=== PATIENT | female | born 1940 | race Two or more races ===

== ENCOUNTER 2025-04-06 08:59 | Inpatient (IN) | payer OTHER ==
[~2025-04-06] VITALS: Ht 167.6 cm; Wt 61.2 kg
[2025-04-06] MEDS ORDERED: TIROSINT75 MCG PO (09:24)
[2025-04-06] MEDS ORDERED: LYRICA100 MG PO (09:24)
[2025-04-06] MEDS ORDERED: COZAAR25 MG PO (09:24)
[2025-04-06] MEDS ORDERED: ROSUVASTATIN CA20 MG PO (09:25)
[2025-04-06] MEDS ORDERED: XARELTO10 MG PO (09:25)
[2025-04-06] MEDS ORDERED: PLAVIX75 MG PO (09:25)
[2025-04-06] MEDS ORDERED: FARXIGA10 MG PO (09:25)
[2025-04-06] MEDS ORDERED: GLUCOTROL (09:26)
[2025-04-06] MEDS ORDERED: LANTUS SOL100 UNIT/1 SQ (09:27)
--- NOTE | 2025-04-06 09:27 | NUR ---
PACIENTE ALERTA Y ORIENTADA X3. REFIRE VENIR POR INFECCION DE ORINA. REFIERE QUE SE GONZALES ESTADO TOMANDO ANTIBIOTICOS AMBER NO LE OLIVO FUNCIONADO. SE ESTIMAN VITALES Y SE UBICA.
[2025-04-06 10:35] LABS: BASO % 0.4 % (0.1-1.2); EOS # 0.16 (0.04-0.54); EOS % 1.3 % (0.7-7.0); LYMPH # 2.60 (1.18-3.74); LYMPH % 21.5 % (19.3-53.1); MEAN PLATELET VOLUME 10.20 fl (9.4-12.4); MONO # 0.69 (0.24-0.82); MONO % 5.7 % (4.7-12.5); NEUT # 8.53 (1.56-6.13); NEUT % 70.8 % (34.0-71.1); RED CELL DISTRIBUTION WIDTH 13.6 % (11.6-14.4)
[2025-04-06 10:41] LABS: URINE APPEARANCE Cloudy; URINE BACTERIA 1481.9 uL (0.0-1933); URINE BILIRRUBIN Negative (NEGATIVE); URINE BLOOD Large; URINE COLOR Yellow; URINE EPITHELIAL CELLS 19.0 uL (0.0-38.8); URINE KETONE Negative (NEGATIVE); URINE LEUKOCYTE Moderate; URINE NITRATE Negative; URINE RBC 103.9 uL (0.0-20.8); URINE UROBILINOGEN 0.2 E.U./dl; URINE WBC 2968.6 uL (0.0-23.2)
--- NOTE | 2025-04-06 10:46 | NUR ---
PTE. EVALUADO POR DR. HIGHTOWER, PRESENTANDO MOLESTIA EN ORINA SE REALIZA VASU DE MUESTRAS DE ABBE BAJO MEDIDAS ASEPTICAS Y SE CANALIZA EN BRAZO RIVKA PATENTE Y JOAN DE EDEMA. CLIENTE Y FAMILIAR SON ORIENTADOS SOBRE PROCEDIMIENTOS REALIZADOS Y PROCESO DE RE-EVALUACION MEDICA. PTE. ALERTA Y ORIENTADO EN ESPERA DE RESULTADOS.
[2025-04-06 10:54] LABS: URINE CAST 0.87 uL (0.0-1.40); URINE GLUCOSE >=1000 MG/DL (NEGATIVE); URINE PROTEIN 100 (NEGATIVE)
[2025-04-06 11:00] LABS: ALT/SGPT 41.0 U/L (12-78); AST/SGOT 21.0 U/L (15-37); BILIRUBIN TOTAL 0.36 mg/dL (0.3-1.2); BUN CREA RATIO 28.0 (7.0-25.0); CREATININE SERUM 2.27 mg/dL (0.55-1.02); GFR 20.41; GLOBULINA 5.1 G/DL (2.4-3.5); OSMOLALITY SERUM 308.0 MOSM/KG (275-295)
[2025-04-06 11:07] LABS: GLUCOSE FASTING 289.0 mg/dL (65-100)
[2025-04-06] MEDS ORDERED: CEFTRIAXONE SODIUM 2,000 MG VIAL IV STA (11:26)
[2025-04-06] MEDS ORDERED: CEFTRIAXONE SODIUM 2,000 MG VIAL ONE (11:30)
[2025-04-06] MEDS ORDERED: ATORVASTATIN CALCIUM 20 MG TABLET PO SCH (20:28)
[2025-04-06] MEDS ORDERED: CLOPIDOGREL BISULFATE 75 MG TABLET PO SCH (20:28)
[2025-04-06] MEDS ORDERED: DEXTROSE 50 % IN WATER 0.5 G/ML DISP.SYRIN IV PRN (20:30)
[2025-04-06] MEDS ORDERED: INSULIN LISPRO 1,000 UNIT/10 ML UNITS SUBCUTANEO PRN (20:30)
[2025-04-06] MEDS ORDERED: PANTOPRAZOLE SODIUM 40 MG in 0.9 % SODIUM CHLORIDE 8 ML IV PUSH SCH (20:33)
[2025-04-06] MEDS ORDERED: RIVAROXABAN 10 MG TAB PO SCH (20:39)
[2025-04-06] MEDS ORDERED: LOSARTAN POTASSIUM 100 MG TABLET PO SCH (20:39)
[2025-04-06] MEDS ORDERED: hydrALAZINE HCL 20 MG VIAL IV PRN (20:45)
[2025-04-06] MEDS ORDERED: VANCOMYCIN HCL 1,000 MG VIAL IV SCH (20:45)
[2025-04-06] MEDS ORDERED: ACETAMINOPHEN 325 MG TABLET PO PRN (20:45)
[2025-04-06] MEDS ORDERED: 0.9 % SODIUM CHLORIDE 1,000 ML IV SCH (20:45)
[2025-04-07 03:12] VITALS: BP 114/69; O2SAT 97
[2025-04-07] MEDS ORDERED: LEVOTHYROXINE SODIUM 75 MCG TABLET PO SCH (06:00)
[2025-04-07 08:58] VITALS: BP 130/69; O2SAT 100
[2025-04-07] MEDS ORDERED: VANCOMYCIN HCL 1,000 MG VIAL IV SCH (12:00)
[2025-04-07 15:30] VITALS: BP 103/59; O2SAT 99
[2025-04-07] MEDS ORDERED: PATIENTS OWN MEDICATION (MEDICAMENTO EN PISO) PO SCH (17:00)
[2025-04-07] MEDS ORDERED: CEFTRIAXONE SODIUM 1,000 MG in 0.9 % SODIUM CHLORIDE 100 ML IV SCH (20:13)
[2025-04-08 01:12] VITALS: BP 106/66; O2SAT 97
[2025-04-08 09:32] VITALS: BP 162/76; O2SAT 99
[2025-04-08 16:50] VITALS: BP 143/63; O2SAT 99
[2025-04-08] MEDS ORDERED: CEFTRIAXONE SODIUM 1,000 MG in 0.9 % SODIUM CHLORIDE 100 ML IV SCH (17:00)
[2025-04-08] MEDS ORDERED: LACTOBACILLUS ACIDOPHILUS 1 CAP CAP PO SCH (17:00)
[2025-04-09 02:08] VITALS: BP 117/69; O2SAT 98
[2025-04-09 06:19] LABS: BASO % 0.6 % (0.1-1.2); EOS # 0.28 (0.04-0.54); EOS % 2.7 % (0.7-7.0); LYMPH # 3.11 (1.18-3.74); LYMPH % 29.6 % (19.3-53.1); MEAN PLATELET VOLUME 10.40 fl (9.4-12.4); MONO # 0.89 (0.24-0.82); MONO % 8.5 % (4.7-12.5); NEUT # 6.12 (1.56-6.13); NEUT % 58.3 % (34.0-71.1); RED CELL DISTRIBUTION WIDTH 13.5 % (11.6-14.4)
[2025-04-09 06:52] LABS: BUN CREA RATIO 25.0 (7.0-25.0); CREATININE SERUM 1.5 mg/dL (0.55-1.02); GFR 32.92; GLUCOSE FASTING 149.0 mg/dL (65-100); OSMOLALITY SERUM 296.0 MOSM/KG (275-295)
[2025-04-09 08:27] VITALS: BP 157/55; O2SAT 100
[2025-04-09 16:00] VITALS: BP 148/83; O2SAT 97
[2025-04-10 00:49] VITALS: BP 120/76; O2SAT 98
[2025-04-10 06:17] LABS: BASO % 0.8 % (0.1-1.2); EOS # 0.27 (0.04-0.54); EOS % 2.6 % (0.7-7.0); LYMPH # 2.81 (1.18-3.74); LYMPH % 27.5 % (19.3-53.1); MEAN PLATELET VOLUME 10.60 fl (9.4-12.4); MONO # 0.88 (0.24-0.82); MONO % 8.6 % (4.7-12.5); NEUT # 6.15 (1.56-6.13); NEUT % 60.2 % (34.0-71.1); RED CELL DISTRIBUTION WIDTH 13.4 % (11.6-14.4)
[2025-04-10 06:34] LABS: ALT/SGPT 23.0 U/L (12-78); AST/SGOT 11.0 U/L (15-37); BILIRUBIN TOTAL 0.3 mg/dL (0.3-1.2); BUN CREA RATIO 22.0 (7.0-25.0); CREATININE SERUM 1.44 mg/dL (0.55-1.02); GFR 34.51; GLOBULINA 3.9 G/DL (2.4-3.5); GLUCOSE FASTING 151.0 mg/dL (65-100); OSMOLALITY SERUM 295.0 MOSM/KG (275-295)
[2025-04-10] MEDS ORDERED: PANTOPRAZOLE SODIUM 40 MG TABLET.DR PO SCH (09:00)
[2025-04-10 16:32] VITALS: BP 138/79
[2025-04-10] MEDS ORDERED: SOD FERRIC GLUC COMPLX/SUCROSE 125 MG in 0.9 % SODIUM CHLORIDE 100 ML IV SCH (20:39)
[2025-04-11 03:17] VITALS: BP 161/94; O2SAT 98
[2025-04-11 03:40] VITALS: BP 116/70
[2025-04-11] MEDS ORDERED: PROMETHAZINE HCL 25 MG/ML AMPUL IV PRN (03:45)
[2025-04-11 06:49] LABS: BASO % 0.3 % (0.1-1.2); EOS # 0.11 (0.04-0.54); EOS % 0.7 % (0.7-7.0); LYMPH # 2.24 (1.18-3.74); LYMPH % 14.7 % (19.3-53.1); MEAN PLATELET VOLUME 10.50 fl (9.4-12.4); MONO # 0.72 (0.24-0.82); MONO % 4.7 % (4.7-12.5); NEUT # 12.11 (1.56-6.13); NEUT % 79.2 % (34.0-71.1); RED CELL DISTRIBUTION WIDTH 13.5 % (11.6-14.4)
[2025-04-11 07:24] LABS: BUN CREA RATIO 20.0 (7.0-25.0); CREATININE SERUM 1.32 mg/dL (0.55-1.02); GFR 38.16; OSMOLALITY SERUM 295.0 MOSM/KG (275-295)
[2025-04-11 07:29] LABS: GLUCOSE FASTING 234.0 mg/dL (65-100)
[2025-04-11 08:54] VITALS: BP 144/85; O2SAT 98
[2025-04-11] MEDS ORDERED: PIPERACILLIN/TAZOBACTAM SODIUM 2.25 GM VIAL IV STA (09:48)
[2025-04-11 13:14] LABS: URINE APPEARANCE Cloudy; URINE BILIRRUBIN Negative (NEGATIVE); URINE BLOOD Large; URINE COLOR Yellow; URINE LEUKOCYTE Moderate; URINE NITRATE Negative; URINE PROTEIN 30 (NEGATIVE); URINE UROBILINOGEN 0.2 E.U./dl
[2025-04-11 13:18] LABS: URINE BACTERIA 159.6 uL (0.0-1933); URINE EPITHELIAL CELLS 23.5 uL (0.0-38.8); URINE RBC 505.5 uL (0.0-20.8); URINE WBC 2160.5 uL (0.0-23.2)
[2025-04-11 13:23] LABS: URINE CAST 0.29 uL (0.0-1.40); URINE GLUCOSE >=1000 MG/DL (NEGATIVE); URINE KETONE 40 (NEGATIVE)
[2025-04-11 15:35] LABS: BASO % 0.1 % (0.1-1.2); EOS # 0.00 (0.04-0.54); EOS % 0.0 % (0.7-7.0); LYMPH # 0.76 (1.18-3.74); LYMPH % 5.0 % (19.3-53.1); MEAN PLATELET VOLUME 10.20 fl (9.4-12.4); MONO # 0.32 (0.24-0.82); MONO % 2.1 % (4.7-12.5); NEUT # 14.13 (1.56-6.13); NEUT % 92.4 % (34.0-71.1); RED CELL DISTRIBUTION WIDTH 13.8 % (11.6-14.4)
[2025-04-11] MEDS ORDERED: SOD FERRIC GLUC COMPLX/SUCROSE 62.5 MG in 0.9 % SODIUM CHLORIDE 50 ML IV SCH (17:00)
[2025-04-11 17:10] VITALS: BP 126/79; O2SAT 96
[2025-04-11] MEDS ORDERED: PIPERACILLIN/TAZOBACTAM SODIUM 2.25 GM VIAL IV SCH (18:00)
[2025-04-11] MEDS ORDERED: POTASSIUM PHOS,M-BASIC-D-BASIC 9 MM in 0.9 % SODIUM CHLORIDE 250 ML IV ONE (20:00)
[2025-04-11] MEDS ORDERED: INSULIN GLARGINE,HUM.REC.ANLOG 1,000 UNITS/10 ML UNITS SUBCUTANEO SCH (20:30)
[2025-04-11] MEDS ORDERED: TEMAZEPAM 15 MG CAPSULE PO SCH (21:00)
[2025-04-12 03:11] VITALS: BP 124/86; O2SAT 97
[2025-04-12 06:18] LABS: BASO % 0.1 % (0.1-1.2); EOS # 0.00 (0.04-0.54); EOS % 0.0 % (0.7-7.0); LYMPH # 1.61 (1.18-3.74); LYMPH % 12.0 % (19.3-53.1); MEAN PLATELET VOLUME 10.60 fl (9.4-12.4); MONO # 1.35 (0.24-0.82); MONO % 10.0 % (4.7-12.5); NEUT # 10.45 (1.56-6.13); NEUT % 77.5 % (34.0-71.1); RED CELL DISTRIBUTION WIDTH 13.6 % (11.6-14.4)
[2025-04-12 07:13] LABS: ALT/SGPT 28.0 U/L (12-78); AST/SGOT 107.0 U/L (15-37); BILIRUBIN TOTAL 0.5 mg/dL (0.3-1.2); BUN CREA RATIO 20.0 (7.0-25.0); CREATININE SERUM 1.58 mg/dL (0.55-1.02); GFR 31.01; GLOBULINA 3.9 G/DL (2.4-3.5)
[2025-04-12 07:20] LABS: GLUCOSE FASTING 203.0 mg/dL (65-100); OSMOLALITY SERUM 301.0 MOSM/KG (275-295)
[2025-04-12] MEDS ORDERED: INSULIN LISPRO 1,000 UNIT/10 ML UNITS SUBCUTANEO STA (08:06)
[2025-04-12 09:11] VITALS: BP 94/58; O2SAT 98
[2025-04-12] MEDS ORDERED: INSULIN LISPRO 1,000 UNIT/10 ML UNITS SUBCUTANEO SCH (12:00)
[2025-04-12 12:59] VITALS: BP 93/60; O2SAT 99
[2025-04-12 18:05] VITALS: BP 93/60; O2SAT 98
[2025-04-12] MEDS ORDERED: INSULIN GLARGINE,HUM.REC.ANLOG 1,000 UNITS/10 ML UNITS SUBCUTANEO SCH (21:00)
[2025-04-13 03:07] VITALS: BP 97/62
[2025-04-13 05:53] LABS: BASO % 0.4 % (0.1-1.2); EOS # 0.27 (0.04-0.54); EOS % 2.7 % (0.7-7.0); LYMPH # 2.59 (1.18-3.74); LYMPH % 26.2 % (19.3-53.1); MEAN PLATELET VOLUME 10.60 fl (9.4-12.4); MONO # 0.85 (0.24-0.82); MONO % 8.6 % (4.7-12.5); NEUT # 6.10 (1.56-6.13); NEUT % 61.9 % (34.0-71.1); RED CELL DISTRIBUTION WIDTH 14.3 % (11.6-14.4)
[2025-04-13 07:20] LABS: ALT/SGPT 29.0 U/L (12-78); AST/SGOT 80.0 U/L (15-37); BILIRUBIN TOTAL 0.49 mg/dL (0.3-1.2); BUN CREA RATIO 20.0 (7.0-25.0); CREATININE SERUM 1.71 mg/dL (0.55-1.02); GFR 28.3; GLOBULINA 3.5 G/DL (2.4-3.5); GLUCOSE FASTING 191.0 mg/dL (65-100); OSMOLALITY SERUM 301.0 MOSM/KG (275-295)
[2025-04-13] MEDS ORDERED: INSULIN LISPRO 1,000 UNIT/10 ML UNITS SUBCUTANEO SCH ×2 (08:00)
[2025-04-13 09:01] VITALS: BP 109/70; O2SAT 97
[2025-04-13] MEDS ORDERED: PIPERACILLIN/TAZOBACTAM SODIUM 2.25 GM VIAL IV SCH (17:00)
[2025-04-13 19:28] VITALS: BP 127/61; O2SAT 100
[2025-04-13] MEDS ORDERED: INSULIN GLARGINE,HUM.REC.ANLOG 1,000 UNITS/10 ML UNITS SUBCUTANEO SCH (21:00)
[2025-04-14 03:40] VITALS: BP 106/65; O2SAT 96
[2025-04-14 08:57] LABS: ob POSITIVE (NEGATIVE)
[2025-04-14 09:27] VITALS: BP 120/73
[2025-04-14 16:36] VITALS: BP 112/70; O2SAT 99
[2025-04-15 05:38] VITALS: BP 130/84; O2SAT 97
[2025-04-15 10:19] VITALS: BP 128/83; O2SAT 99
[2025-04-15 11:19] LABS: BASO % 0.6 % (0.1-1.2); EOS # 0.23 (0.04-0.54); EOS % 2.8 % (0.7-7.0); LYMPH # 1.73 (1.18-3.74); LYMPH % 20.8 % (19.3-53.1); MEAN PLATELET VOLUME 10.20 fl (9.4-12.4); MONO # 0.63 (0.24-0.82); MONO % 7.6 % (4.7-12.5); NEUT # 5.63 (1.56-6.13); NEUT % 67.8 % (34.0-71.1); RED CELL DISTRIBUTION WIDTH 15.8 % (11.6-14.4)
== END 2025-04-15 16:17 | disposition home or self-care (01) | DRG 690 ==
LOC: ER 08:59 → MEDI 20:28
PROVIDERS: General Practice; Internal Medicine; Internal Medicine Infectious Disease; Internal Medicine Nephrology; ADMIT Internal Medicine; ATTEND Internal Medicine
PROC: B020ZZZ Computerized Tomography (CT Scan) of Brain (ICD-10-PCS; principal; 2025-04-07)
PROC: BW40ZZZ Ultrasonography of Abdomen (ICD-10-PCS; 2025-04-11)
PROC: BW4GZZZ Ultrasonography of Pelvic Region (ICD-10-PCS; 2025-04-11)
PROC: BW28ZZZ Computerized Tomography (CT Scan) of Head (ICD-10-PCS; 2025-04-12)
PROC: B24BYZZ Ultrasonography of Heart with Aorta using Other Contrast (ICD-10-PCS; 2025-04-12)
DX: N39.0 Urinary tract infection, site not specified (principal); N17.9 Acute kidney failure, unspecified; I10 Essential (primary) hypertension; E11.9 Type 2 diabetes mellitus without complications; Z79.4 Long term (current) use of insulin; E03.9 Hypothyroidism, unspecified; R63.0 Anorexia; D64.9 Anemia, unspecified; E78.5 Hyperlipidemia, unspecified